=== PATIENT | female | born 2000 | race Caucasian/White ===

== ENCOUNTER 2025-01-30 01:17 | Emergency (ER) | payer OTHER, SELFPAY ==
[2025-01-30] VITALS (8 sets, daily range): BP systolic 107–155; BP diastolic 60–114
[2025-01-30] MEDS: NSS 1000 IV (01:44)
[2025-01-30 01:56] LABS: Hematocrit 43.1 % (37.0-47.0); Hemoglobin 15.0 g/dL (12.0-16.0); Mean Corp Hgb Conc. 34.8 g/dL (33.0-37.0); Mean Corpuscular Volume 92.3 fL (81.0-99.0); Nucleated Red Blood Cells % 0 %; Platelet Count 265 10^3/uL (130-400); Red Cell Dist. Width 12.3 % (11.5-14.5)
--- NOTE | 2025-01-30 02:03 | ED.GENMED ---
History of Present Illness
General
Chief Complaint: Fall
Source: patient
Exam Limitations: none
Time Seen by Provider: 01/30/25 01:28
Nursing documentation reviewed up to this point in time: agreed with
History of Present Illness
History of Present Illness:
Note:
CHIEF COMPLAINT(S)
Found unconscious outside with possible alcohol involvement.
HISTORY OF PRESENT ILLNESS
The patient is a 24-year-old female with a known history of alcohol use and anxiety for which she has previously experienced panic attacks. Mom reports that she was found unconscious outside her house estimated two-hour period since she was last
seen indoors. Mom reports that patient was drinking a few alcoholic seltzers earlier in the evening and saw her walk outside. She thought she went to her sister's house in the neighborhood however she called no one was there. Patient herself
states that she was with her friends the mom mentioned the presence of red wine stains around the patients mouth. Patient denies vomiting blood. Patient denies rectal bleeding. Patient is chest pain, abdominal pain, dark tarry stools. The
patient has no recollection of the events leading to her outdoor location and denies any head trauma, pain, or other symptoms except anxiety. She did not admit to taking any drugs or other substances apart from occasionally using a vape. Mom
reports that how she appears now is how she looks when she uses her vape and alcohol the same time. Anna drinks nearly every day and has never sought treatment for alcohol use. She is up to date on her tetanus vaccination.
PAST MEDICAL AND SURGICAL HISTORY
The patient has a history of anxiety with past panic attacks. She has a tendency to bruise easily, which her recent doctor visit deemed non-concerning. A history of alcohol use is acknowledged, though previously not admitted by the patient.
ADDITIONAL HISTORY OBTAINED FROM SOURCES OTHER THAN THE PATIENT
Per the mom, the patient was last seen indoors two hours before being found outside. The patient appeared to have been drinking red wine based on stains around her mouth. The spouse also mentioned a likely history of previous alcohol use.
SOCIAL HISTORY
The patient occasionally uses a vape, primarily when drinking alcohol.
PHYSICAL EXAM
- Nursing notes reviewed and vital signs reviewed.
General: Patient appears acutely intoxicated, slurred speech, there is scattered dirt around her upper and lower extremities
Skin: Warm and dry, abrasion noted to right elbow, no lacerations
Head: Normocephalic, atraumatic, scattered dirt, noted to her right forehead but no signs of trauma
Eyes: Sclera non-icteric. EOMs intact.
Neck: No tenderness to palpation of the cervical spine, rull ROM of the cervical spine
Cardiac: Patient tachycardic otherwise regular rhythm, no murmurs
Peripheral Vascular: No lower extremity swelling or edema
Pulm: Normal respiratory effort, no wheezes, rales, rhonchi
Abdomen: No abdominal tenderness to palpation
Musculoskeletal: No tenderness palpation in the bilateral upper and lower extremities, full range of motion bilaterally, 5 out of 5 strength
Neuro: CN II-XII intact, no focal neurologic deficits.
Psychiatric: Appropriate mood and affect.
PROBLEM LIST
Acute:
- Found unconscious outside with possible alcohol intoxication
- Anxiety
Chronic:
- History of anxiety and panic attacks
- History of alcohol use
PLAN
- Conduct a computed tomography scan of the head to rule out any trauma-related issues from potential falls.
- Perform blood tests to check for electrolyte imbalances and other abnormalities.
- Administer fluids for hydration and observation of improvement.
- Reassess symptoms post-imaging and test results to confirm or adapt treatment plan as necessary.
DIFFERENTIAL DIAGNOSIS
The Differential Diagnosis includes, in no particular order and is not limited to:
1. Alcohol intoxication
2. Anxiety or panic attack
3. Seizure
4. Syncope
5. Substance use/abuse
6. Traumatic brain injury
7. Hyponatremia
8. Anemia
9. Hypoglycemia
10. Dehydration
UPDATE
3:30 AM�patient almost finished with IV fluids, on reassessment, her speech is clear, she answers my questions, she does not appear anxious, she feels improved. I asked her about what happened again she is not recall however she states that she
did not hurt herself or fall. She no pain currently. She still denies any neck pain or headaches. Will continue to observe. I spoke to patient about [facility] carriers and the resources they offer. I discussed inpatient and outpatient resources.
Patient does not wish to speak to [facility] at this time.
MDM/DISPOSITION
The patient is a 24-year-old female with a known history of alcohol use and anxiety for which she has previously experienced panic attacks. Mom reports that she was found unconscious outside her house estimated two-hour period since she was last
seen indoors. She reports she went out with her friends. She was found lying flat on the driveway covered in dirt. On physical exam, she has no signs of head or neck trauma. She went for CT scan of the head which showed no signs of acute traumatic
abnormalities. Alcohol level 452.
She was given IV fluids. On reassessment, she is feeling better, has clear speech. I asked her again and she states that she is in no pain and does not recall any injuries. Her mom is present with her and will drive her home. I stressed avoiding
driving for the next day and strict return precautions. Patient stable for dishcharge.
Past History
Past History
ED Past Medical History: Psychiatric (Anxiety)
Social History
Tobacco: Non-smoker
Alcohol: Occasional
Drug: None
Review of Systems
Review of Systems
All Other Systems: ROS reviewed and negative except as documented in HPI and ROS
Phy Exam
Physical Exam
Physical Exam:
see hpi
Course
Orders/Labs/Results
Orders:
Orders
01/30/25 01:38
0.9% Sodium Chloride 1000 ml [Nss] 1,000 ml IV BOLUS
Test Result ONCE
01/30/25 01:39
CT Head W/o Iv Contrast Urgent
Comment:
Reason For Exam: questionable fall
01/30/25 01:45
Alcohol Urgent
Complete Blood Count/With Diff Urgent
Comprehensive Metabolic Panel Urgent
01/30/25 04:02
0.9% Sodium Chloride 250 ml [Nss] 250 ml IV BOLUS
01/30/25 05:02
, Urine Qualitative Screen [HCG, Urine Qualitative Screen] Urgent
Date Specimen was Collected: 01/30/25
Time Specimen was Collected: 05:01
Urinalysis Reflex To Culture Urgent
Date Specimen was Collected: 01/30/25
Time Specimen was Collected: 05:01
Urine Drug Abuse Screen Urgent
Date Specimen was Collected: 01/30/25
Time Specimen was Collected: 05:01
Abnormal Lab Results
01/30/25
01:45
MCH 32.1 H pg
(27.0-31.0)
Sodium 147 H mmol/L
(135-145)
Chloride 112 H mmol/L
(98-107)
Glucose 115 H mg/dl
(70-99)
Total Protein 8.3 H g/dl
(6.3-8.2)
Alcohol, Quantitative 452 H* mg/dl
01/30/25 01:45
01/30/25 01:45
Vital Signs
Initial and Last Documented VS:
Initial Vital Signs
Temp Pulse Resp BP Pulse Ox
97.9 F 134 24 155/114 99
01/30/25 01:21 01/30/25 01:21 01/30/25 01:21 01/30/25 01:21 01/30/25 01:21
Last Documented Vital Signs
Temp Pulse Resp BP Pulse Ox
97.9 F 98 18 109/75 97
01/30/25 01:21 01/30/25 05:57 01/30/25 05:57 01/30/25 05:53 01/30/25 05:53
*Pulse Oximetry
SaO2: 98
Oxygen Mode of Delivery: Room air
Patient hypoxic: no
*Critical Care Note
Total Time (30-74mins, 75-104mins- exclusive of procedures): Not Applicable
ED Attending Note
-
Portions of this chart may have been created with voice recognition software.� Occasional wrong word or��sound alike� substitutions may have occurred due to the inherent limitations of voice recognition software.
Discharge Plan
Departure
Patient Disposition: Home (Routine Discharge)
Date of Disposition: 01/30/25
Time of Disposition: 05:54
Patient with high blood pressure during this ER visit?: Yes
Condition: Good
Discharge Problem:
Alcohol intoxication, Abrasion of skin
Instructions: Skin Abrasions (DC), Alcohol intoxication - ED discharge instructions, BLOOD PRESSURE
Prescriptions:
No Action
hydrocodone-acetaminophen 1 TABLET tablet
1 tab PO Q4HPRN PRN (Reason: pain) Qty: 8 0RF
ondansetron 8 mg tablet,disintegrating
8 mg PO TID PRN (Reason: nausea and vomiting) Qty: 30 0RF
Referrals:
Benny Valdes CRNP [Family Provider]
Activity Restrictions/Additional Instructions:
Please refrain from driving and operating motor vehicles for the next 24 hours. Please stay well-hydrated.
If you change your mind regarding treatment for alcohol, you can return to the ER anytime.
PLEASE RETURN EMERGENCY DEPARTMENT SHOULD SHE DEVELOP TREMORS, SEIZURE-LIKE ACTIVITY, NUMBNESS OR TINGLING, INTRACTABLE NAUSEA OR VOMITING, HEADACHE, CHEST PAIN, SHORTNESS OF BREATH, NECK PAIN, FAINTING SPELLS, TREMORS, OR ANY OTHER SIGNS OR
SYMPTOMS WORRISOME TO YOU.
Interventions
Interventions:
*Risk Screen - Suicide Last Done: 01/30/25 01:21
*General Assessment Last Done: 01/30/25 01:33
*Neglect/Abuse Screening Last Done: 01/30/25 01:21
*ED- Fall Risk Assessment Last Done: 01/30/25 01:33
*ED COVID-19 Vaccine History Last Done: 01/30/25 01:33
*Nursing Disposition Last Done: 01/30/25 06:06
ED-Musculoskeletal Assessment Last Done: 01/30/25 01:33
ED- Neurological Assessment Last Done: 01/30/25 01:33
ED-Skin Assessment Last Done: 01/30/25 01:33
Discharge Date and Time
Discharge Date/Time: 01/30/25 06:07
Print Language: MALIAN
[2025-01-30 02:17] LABS: ALT (SGPT) 29 U/L (0-35); AST (SGOT) 36 U/L (14-36); Albumin 4.9 g/dl (3.5-5.0); Alkaline Phosphatase 121 U/L (38-126); Blood Urea Nitrogen 10 mg/dl (7-17); Calcium 9.4 mg/dl (8.4-10.2); Carbon Dioxide 22 mmol/L (22-30); Chloride 112 mmol/L (98-107); Glucose 115 mg/dl (70-99); Potassium 3.9 mmol/L (3.5-5.1); Sodium 147 mmol/L (135-145); Total Protein 8.3 g/dl (6.3-8.2); eGFR > 60.00
[2025-01-30] MEDS: NSS 250 IV (04:06)
[2025-01-30 05:09] LABS: Urine Character Clear (Clear)
[2025-01-30 05:15] LABS: HCG, Urine Qualitative Screen Negative
== END 2025-01-30 06:07 | disposition home or self-care (01) ==
LOC: EMR 01:17
PROVIDERS: Physician Assistant; EMERGENCY PHYSICIAN Emergency Medicine
DX: F10.129 Alcohol abuse with intoxication, unspecified (principal); Y90.8 Blood alcohol level of 240 mg/100 ml or more; S50.311A Abrasion of right elbow, initial encounter; R03.0 Elevated blood-pressure reading, without diagnosis of hypertension; F41.9 Anxiety disorder, unspecified; F41.0 Panic disorder [episodic paroxysmal anxiety]; F17.290 Nicotine dependence, other tobacco product, uncomplicated; X58.XXXA Exposure to other specified factors, initial encounter; Y92.008 Other place in unspecified non-institutional (private) residence as the place of occurrence of the external cause
CPT/HCPCS: 99284; 96360; 96361; 70450; 80053; 80306; 81003; 81025; 82077; 85025